=== PATIENT | male | born 1970 | race Hispanic/Latino ===

== ENCOUNTER 2018-01-08 21:12 | Emergency (ER) | payer SELFPAY ==
[2018-01-08] MEDS ORDERED: Lidocaine 1% PF 5 ML VIAL ONE (22:01)
--- NOTE | 2018-01-08 22:30 | RAD ---
PORTABLE AP CHEST X-RAY: 01/08/18 HISTORY: Trauma. COMPARISON: None available. FINDINGS: The cardiac silhouette and pulmonary vasculature are within normal limits. The lungs are clear. 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 IMPRESSION: No acute cardiopulmonary process. POS: [facility]
--- NOTE | 2018-01-08 22:34 | RAD ---
TWO VIEWS LEFT FOREARM: 01/08/18 HISTORY: Injury. Fall, arm laceration. FINDINGS: There is no evidence of a fracture or dislocation. No radiopaque foreign body is seen. There is soft tissue irregular and question of punctate focus of subcutaneous emphysema at the dorsal and medial as pect of the mid left forearm which is likely related to site of laceration. No other findings. IMPRESSION: 1. No acute osseous abnormality. 2. Laceration medial subcutaneous soft tissues mid left forearm. POS: [facility]
== END 2018-01-08 22:40 | disposition home or self-care (01) ==
LOC: ERS 21:12
DX: S51.812A Laceration without foreign body of left forearm, initial encounter (principal); S20.212A Contusion of left front wall of thorax, initial encounter; F17.200 Nicotine dependence, unspecified, uncomplicated; Z71.6 Tobacco abuse counseling; W11.XXXA Fall on and from ladder, initial encounter
CPT/HCPCS: 12001; 71045; 99406; J2001

== ENCOUNTER 2018-01-10 22:37 | Emergency (ER) | payer SELFPAY ==
[2018-01-10] MEDS ORDERED: HYDROcodone/Acetaminophen 10/325 mg Tablet ONE (22:55)
== END 2018-01-10 23:13 | disposition home or self-care (01) ==
LOC: ERS 22:37
DX: T81.49XA Infection following a procedure, other surgical site, initial encounter (principal); F17.210 Nicotine dependence, cigarettes, uncomplicated
CPT/HCPCS: 99282

== ENCOUNTER 2020-12-19 17:05 | Emergency (ER) | payer SELFPAY ==
[~2020-12-19 17:05] MED LIST: Iopamidol-370 76% 500 ML 1 ML ONE
[2020-12-19] MEDS ORDERED: Ketorolac Tromethamine 30 MG/ML VIAL ONE (17:24)
[2020-12-19 17:45] LABS: #Eosinphils 0.1 thou/uL (0.0-0.7); #Lymphocytes 1.8 thou/uL (1.20-3.40); #Monocytes 0.7 thou/uL (0.11-0.59); %Basophils 0.1 % (0.0-1.0); %Eosinophils 1.9 % (0.0-10.0); %Lymphocytes 26.6 % (21.0-51.0); %Neutrophils 60.4 % (42.0-75.0); Hemoglobin 15.6 g/dL (14.0-18.0); Mean Corpuscular HGB CONC 33.5 g/dL (32.0-36.0); Mean Corpuscular Hemoglobin 30.8 pg (27.0-31.0); Mean Corpuscular Volume 92.1 fL (78.0-98.0); Mean Platelet Volume 7.3 fL (7.4-10.4); Platelet Count 258 thou/uL (130-400); RBC Distribution Width 11.5 % (11.5-14.5); Red Blood Cell (RBC) Count 5.07 mill/uL (4.70-6.10); White Blood Cell (WBC) Count 6.6 thou/uL (4.8-10.8)
[2020-12-19 17:51] LABS: Bacteria/HPF None Seen HPF (None Seen); Bilirubin Negative (Negative); Blood, Urine Negative (Negative); Clarity Clear (Clear); Glucose, Urine (Dipstick) Normal (Negative); Ketone, Urine 40 mg/dL (Negative); Leukocyte Negative Leu/uL (Negative); Nitrite Negative (Negative); Protein, Urine (Dipstick) 30 mg/dL (Neg-Trace); RBC/HPF 0-3 HPF (0-3); Specific Gravity, Urine 1.029 (1.002-1.036); Squamous Epithelial 0-3 HPF (0-3); Urobilinogen Normal mg/dL (Less than 2); WBC/HPF 0-3 HPF (0-3); pH, Urine 5.5 (5.0-9.0)
[2020-12-19 17:58] LABS: ALT (SGPT) 25 U/L (8-55); AST (SGOT) 23 U/L (5-34); Albumin 4.4 g/dL (3.5-5.0); Alkaline Phosphatase 75 U/L (40-110); Anion Gap 12 mmol/L (10-20); BUN (Urea Nitrogen) 17 mg/dL (8.9-20.6); Bilirubin, Total 0.8 mg/dL (0.2-1.2); Calc. Creatinine Clearance 0 mL/min (70-130); Calcium 9.7 mg/dL (7.8-10.44); Carbon Dioxide 25 mmol/L (22-29); Chloride 105 mmol/L (98-107); Globulin 3.7 g/dL (2.4-3.5); Glucose 83 mg/dL (70-105); Lipase 22 U/L (8-78); Magnesium 2.4 mg/dL (1.6-2.6); Potassium 4.3 mmol/L (3.5-5.1); Protein, Total 8.1 g/dL (6.0-8.3); Sodium 138 mmol/L (136-145)
== END 2020-12-19 19:10 | disposition home or self-care (01) ==
LOC: ERS 17:05
DX: R10.31 Right lower quadrant pain (principal); F17.200 Nicotine dependence, unspecified, uncomplicated; Z79.899 Other long term (current) drug therapy
CPT/HCPCS: 74177; 80053; 81003; 81015; 83690; 83735; 85025; 96374; J1885; Q9967

== ENCOUNTER 2022-05-15 12:44 | Emergency (ER) | payer SELFPAY | END 2022-05-15 15:44 | disposition left against medical advice (07) | LOC: ERS 12:44 | DX: Z53.29 Procedure and treatment not carried out because of patient's decision for other reasons (principal) ==